=== PATIENT | female | born 1940 ===

== ENCOUNTER 2018-07-09 03:04 | Emergency (ER) | payer BC ==
[~2018-07-09] VITALS: Ht 165.1 cm; Wt 78.0 kg
[2018-07-09 03:15] VITALS: Ht 165.1 cm; Wt 78.0 kg
--- NOTE | 2018-07-09 04:11 | EMERGENCY ROOM VISIT NOTE ---
History Report prepared by Yazan: Lenin Hess Under the Supervision of: Dr. Donna Sommers D.O. First contact with patient: 03:59 Chief Complaint: URINARY SYMPTOMS Stated Complaint: UTI,UNCONTROLLABLE SHAKE History of Present Illness The patient is a 77 year old female who presents to the Emergency Room with complaints of constant shakiness beginning a few days ago. The patient states that she developed severe chills and uncontrollable shakiness a few days ago. She notes that her chills were so severe that her teeth were chattering and her hands were shaking. No measured fever at home. The patient states that she was having pain with urination and an increased frequency of urination a few days ago. She also complains of back pain, nausea, and a dry mouth. She denies any fever, abdominal pain, cough, cold-like symptoms, and known sick contacts. She notes that her blood sugar and temperature were normal when she last checked. She reports that she has a history of UTIs, and she states that her current symptoms feel like a UTI. The patient notes that she has not had a UTI that spread to her kidneys or grew out resistant organisms. She reports that she also had a bypass surgery 14 years ago. Source of History: patient Onset: a few days ago Position: other (generalized) Quality: other (shakiness) Timing: constant Associated Symptoms: + chills, + nausea, + back pain, No fevers, No cough, No abdominal pain Note: The patient also complains of discharge along her eyelashes, pain with urination , an increased frequency of urination, and a dry mouth. She denies any cold like symptoms. Review of Systems See HPI for pertinent positives & negatives. A total of 10 systems reviewed and were otherwise negative. Past Medical & Surgical Medical Problems: (1) Eye infection (2) UTI (urinary tract infection) Family History No pertinent family history stated. Social History Smoking Status: Former Smoker Marital Status: Housing Status: lives with family Occupation Status: retired Current/Historical Medications Scheduled Aspirin (Aspirin Ec), 81 MG PO HS Canagliflozin (Invokana), 100 MG PO QAM Cephalexin (Keflex), 1 CAP PO BID Coenzyme Q10 (Ubidecarenone) (Coq10), 100 MG PO HS Famotidine (Pepcid Ac Maximum Strengt), 20 MG PO AMPM Glimepiride (Glimepiride), 2 TAB PO QPM Glimepiride (Glimepiride), 1 TAB PO QAM Linagliptin (Tradjenta), 1 TAB PO QAM Losartan Potassium (Cozaar), 25 MG PO HS Metformin Hcl (Glucophage), 1,000 MG PO BID Metoprolol Tartrate (Lopressor) (Lopressor), 25 MG PO BID Multiple Vitamins W/ Minerals (Multivitamin Adults 50+), 1 TAB PO Q2D Pravastatin Sod (Pravastatin Sodium), 40 MG PO HS Scheduled PRN Cyclosporine (Ophth) (Restasis), 1 DROP OP BID PRN for DRYNESS Allergies Coded Allergies: Penicillins (Verified Allergy, Severe, HIVES, 07/09/18) Physical Exam Vital Signs Date Time Temp Pulse Resp B/P (MAP) Pulse Ox O2 Delivery O2 Flow Rate FiO2 07/09/18 07:18 66 16 140/63 97 07/09/18 04:58 80 18 140/63 95 Room Air 07/09/18 03:15 36.9 83 18 115/66 95 Room Air Physical Exam GENERAL: alert, well appearing, well nourished, no distress, non-toxic EYE EXAM: normal conjunctiva, PERRL and EOM's grossly intact OROPHARYNX: no exudate, no erythema, lips, buccal mucosa, and tongue normal and mucous membranes are dry NECK: supple, no nuchal rigidity, no adenopathy, non-tender LUNGS: Clear to auscultation. Normal chest wall mechanics, no w/r/r HEART: no murmurs, S1 normal and S2 normal ABDOMEN: abdomen soft, non-tender, normo-active bowel sounds, no masses, no rebound or guarding. BACK: Back is symmetrical on inspection and there is no deformity, no midline tenderness, no CVA tenderness. SKIN: no rashes and no bruising UPPER EXTREMITIES: upper extremities are grossly normal. FROM, nml pulses. LOWER EXTREMITIES: No pitting edema. FROM, nml pulses. NEURO EXAM: Normal sensorium, cranial nerves II-XII grossly intact, normal speech, no gross weakness of arms, no gross weakness of legs. Medical Decision & Procedures ER Provider Diagnostic Interpretation: Radiology results have been interpreted by the radiologist and reviewed by me. CT ABDOMEN & PELVIS With Contrast: No bowel obstruction or definite wall thickening. No ascites or free air. 2cm right adnexal cyst. Mild bladder wall thickening may indicate infection. Colonic diverticulosis without inflammation. Pneumobilia, status post cholecystectomy, no CBD dilation. Radiologist: Hermelindo Fischer MD. ADDENDUM: No acute fracture. Nonspecific subcutaneous calcified lesion at the level of the coccyx. Laboratory Results 07/09/18 04:25 Red Blood Count 4.52, Mean Corpuscular Volume 88.7, Mean Corpuscular Hemoglobin 28.3, Mean Corpuscular Hemoglobin Concent 31.9, Mean Platelet Volume 10.5, Neutrophils (%) (Auto) 80.5, Lymphocytes (%) (Auto) 9.0, Monocytes (%) (Auto) 7.2, Eosinophils (%) (Auto) 2.6, Basophils (%) (Auto) 0.3, Neutrophils # (Auto) 6.25, Lymphocytes # (Auto) 0.70, Monocytes # (Auto) 0.56, Eosinophils # (Auto) 0.20, Basophils # (Auto) 0.02 07/09/18 04:25 Test 07/09/18 03:50 07/09/18 04:25 07/09/18 06:53 Urine Color DK YELLOW Urine Appearance CLOUDY (CLEAR) Urine pH 5.0 (4.5-7.5) Urine Specific [place] 1.014 (1.000-1.030) Urine Protein TRACE (NEG) Urine Glucose (UA) 2+ (NEG) Urine Ketones NEG (NEG) Urine Occult Blood TRACE (NEG) Urine Nitrite POS (NEG) Urine Bilirubin NEG (NEG) Urine Urobilinogen NEG (NEG) Urine Leukocyte Esterase MODERATE (NEG) Urine WBC (Auto) >30 /hpf (0-5) Urine RBC (Auto) 5-10 /hpf (0-4) Urine Hyaline Casts (Auto) 1-5 /lpf (0-5) Urine Epithelial Cells (Auto) >30 /lpf (0-5) Urine Bacteria (Auto) NEG (NEG) White Blood Count 7.76 K/uL (4.8-10.8) Red Blood Count 4.52 M/uL (4.2-5.4) Hemoglobin 12.8 g/dL (12.0-16.0) Hematocrit 40.1 % (37-47) Mean Corpuscular Volume 88.7 fL (80-100) Mean Corpuscular Hemoglobin 28.3 pg (25-34) Mean Corpuscular Hemoglobin Concent 31.9 g/dl (32-36) Platelet Count 167 K/uL (130-400) Mean Platelet Volume 10.5 fL (7.4-10.4) Neutrophils (%) (Auto) 80.5 % Lymphocytes (%) (Auto) 9.0 % Monocytes (%) (Auto) 7.2 % Eosinophils (%) (Auto) 2.6 % Basophils (%) (Auto) 0.3 % Neutrophils # (Auto) 6.25 K/uL (1.4-6.5) Lymphocytes # (Auto) 0.70 K/uL (1.2-3.4) Monocytes # (Auto) 0.56 K/uL (0.11-0.59) Eosinophils # (Auto) 0.20 K/uL (0-0.5) Basophils # (Auto) 0.02 K/uL (0-0.2) RDW Standard Deviation 48.2 fL (36.4-46.3) RDW Coefficient of Variation 14.9 % (11.5-14.5) Immature Granulocyte % (Auto) 0.4 % Immature Granulocyte # (Auto) 0.03 K/uL (0.00-0.02) Prothrombin Time 9.5 SECONDS (9.0-12.0) Prothromb Time International Ratio 0.9 (0.9-1.1) Anion Gap 8.0 mmol/L (3-11) Est Creatinine Clear Calc Drug Dose 31.2 ml/min Estimated GFR () 37.7 Estimated GFR (Non- 32.5 BUN/Creatinine Ratio 22.5 (10-20) Calcium Level 9.6 mg/dl (8.5-10.1) Magnesium Level 2.1 mg/dl (1.8-2.4) Total Bilirubin 0.6 mg/dl (0.2-1) Aspartate Amino Transf (AST/SGOT) 18 U/L (15-37) Alanine Aminotransferase (ALT/SGPT) 23 U/L (12-78) Alkaline Phosphatase 125 U/L (45-117) Troponin I < 0.015 ng/ml (0-0.045) Pro-B-Type Natriuretic Peptide 409 pg/ml (0-1800) Total Protein 7.7 gm/dl (6.4-8.2) Albumin 3.8 gm/dl (3.4-5.0) Globulin 3.9 gm/dl (2.5-4.0) Albumin/Globulin Ratio 1.0 (0.9-2) Thyroid Stimulating Hormone (TSH) 1.760 uIu/ml (0.300-4.500) Bedside Lactic Acid Venous 1.51 mmol/L (0.90-1.70) Laboratory results per my review. Medications Administered Medications (Trade) Dose Ordered Sig/Nikhil Route Start Time Stop Time Status Last Admin Dose Admin Sodium Chloride 1,000 ml @ 999 mls/hr Q1H1M STAT IV 07/09/18 04:15 07/09/18 05:15 DC 07/09/18 04:50 999 MLS/HR Ceftriaxone Sodium (Rocephin Inj) 1 gm NOW STAT IV 07/09/18 04:46 07/09/18 04:47 DC 07/09/18 04:57 1 GM Sodium Chloride 500 ml @ 999 mls/hr Q31M STAT IV 07/09/18 05:22 07/09/18 05:52 DC 07/09/18 06:11 999 MLS/HR ECG Per My Interpretation Indication: back/shoulder pain Rate (beats per minute): 73 Rhythm: sinus rhythm Findings: RBBB, no acute ischemic change, other (Normal axis) ED Course 0401: The patient was evaluated in room B6. A complete history and physical exam was performed. 0415: Sodium Chloride 1000 ml @ 999 mls/hr IV 0446: Rocephin Inj 1gm IV 0522: Sodium Chloride 500 ml @ 999 mls/hr IV 0629: I reevaluated and updated the patient. 0657: Upon reevaluation, the patient is feeling better. I discussed the findings and the treatment plan with the patient. She verbalizes agreement and understanding. The patient was discharged home. Medical Decision Differential diagnosis: Etiologies such as renal colic, appendicitis, diverticulitis, mesenteric ischemia, aortic pathology, infections, inflammatory bowel disease, PUD, biliary pathology, UTI, pyelonephritis, as well as others were entertained Patient well-appearing here despite complaints, initially with dry mucous membranes and started on IV fluids. Patient hemodynamically stable throughout. Patient's UA consistent with urinary tract infection. No evidence on CT of fulminant pyelonephritis. Mild elevation of patient's creatinine noted, patient unsure what her baseline is, and no priors available for comparison given the patient just moved to the area last week and all records are still at her old residence with her family physician who she still intends to follow with. No evidence of bacteremia/sepsis. Patient had no recurrent nausea or vomiting, fevers or chills, and pain was well controlled. Patient anxious to be discharged. I did discuss at length continued use of the antibiotic that she was started on at home, need for improved hydration, symptoms to watch and return for, follow-up within 2-3 days with her family doctor, she verbalized understanding was agreeable with plan. Patient's initial lactic acid mildly elevated, I feel this is more likely due to dehydration than evolving sepsis/ ischemia given that it was improved on recheck following IV fluids. Medication Reconcilliation Current Medication List: was personally reviewed by me Blood Pressure Screening Patient's blood pressure: Elevated blood pressure Blood pressure disposition: Elevated BP felt to be situational Impression Primary Impression: Urinary tract infection Additional Impressions: Dehydration Acute renal insufficiency Scribe Attestation The scribe's documentation has been prepared under my direction and personally reviewed by me in its entirety. I confirm that the note above accurately reflects all work, treatment, procedures, and medical decision making performed by me. Departure Information Dispostion Home / Self-Care Prescriptions Cephalexin (KEFLEX) 500 Mg Cap 1 CAP PO BID for 7 Days, #14 CAP Prov: Donna Sommers, DO 07/09/18 Referrals No Doctor, Assigned (PCP) Forms HOME CARE DOCUMENTATION FORM, IMPORTANT VISIT INFORMATION Patient Instructions My [facility] Additional Instructions Please call and follow-up with your family doctor next week. These continue taking the Keflex as prescribed. You may skip the morning dose as he was given IV antibiotics here. Please have your family doctor recheck your kidney function next week as it was mildly abnormal but we do not know what her baseline is. Your creatinine was 1.5. Your urine will be sent for culture, this will take 48 hours to result. If antibiotics need to be changed she will receive a phone call. If you have any abdominal pain, back pain, vomiting, fevers or chills, are unable to urinate, you have any other new concerns, please return the emergency room. Please take the antibiotics for 7 days. Please drink plenty of water to stay well-hydrated. Please continue your other medications as prescribed. Problem Qualifiers Primary Impression: Urinary tract infection Urinary tract infection type: acute cystitis Hematuria presence: with hematuria Qualified Codes: N30.01 - Acute cystitis with hematuria
[2018-07-09] MEDS ORDERED: SODIUM CHLORIDE 0.9% 1000ML 1,000 ML IV STA (04:15)
[2018-07-09 04:37] LABS: BASO % 0.3 %; BASO ABS # 0.02 K/uL (0-0.2); EOS % 2.6 %; HEMATOCRIT 40.1 % (37-47); HEMOGLOBIN 12.8 g/dL (12.0-16.0); IG# 0.03 K/uL (0.00-0.02); MEAN CELL VOLUME 88.7 fL (80-100); MEAN CORPUSCULAR HEMOGLOBIN 28.3 pg (25-34); MEAN CORPUSCULAR HGB CONC 31.9 g/dl (32-36); MEAN PLATELET VOLUME 10.5 fL (7.4-10.4); MONO % 7.2 %; MONO ABS # 0.56 K/uL (0.11-0.59); NEUT % 80.5 %; NEUT ABS # 6.25 K/uL (1.4-6.5); PLATELET COUNT 167 K/uL (130-400); RED CELL DISTRIBUTION WIDTH CV 14.9 % (11.5-14.5); RED CELL DISTRIBUTION WIDTH SD 48.2 fL (36.4-46.3); WHITE BLOOD COUNT 7.76 K/uL (4.8-10.8)
[2018-07-09] MEDS ORDERED: CEFTRIAXONE SOD INJ 1 GM ADDVIAL IV STA (04:46)
[2018-07-09 04:52] LABS: INR 0.9 (0.9-1.1)
[2018-07-09 05:11] LABS: ALBUMIN 3.8 gm/dl (3.4-5.0); ALKALINE PHOSPHATASE 125 U/L (45-117); ALT/SGPT 23 U/L (12-78); AST/SGOT 18 U/L (15-37); BLOOD UREA NITROGEN 34 mg/dl (7-18); CALCIUM 9.6 mg/dl (8.5-10.1); CARBON DIOXIDE 24 mmol/L (21-32); CREATININE 1.51 mg/dl (0.60-1.20); GLUCOSE 171 mg/dl (70-99); POTASSIUM 4.6 mmol/L (3.5-5.1); SODIUM 138 mmol/L (136-145); TOTAL PROTEIN 7.7 gm/dl (6.4-8.2)
[2018-07-09] MEDS ORDERED: OPTIRAY 320 IV PRN (05:15)
[2018-07-09] MEDS ORDERED: SODIUM CHLORIDE 0.9% 500ML 500 ML IV STA (05:22)
[2018-07-09] MEDS ORDERED: GLIM1TAB2 PO ×2 (05:24)
[2018-07-09] MEDS ORDERED: METF1000 PO (05:24)
[2018-07-09] MEDS ORDERED: LOSA1TAB PO (05:27)
[2018-07-09] MEDS ORDERED: COEN100C7 PO (05:27)
[2018-07-09] MEDS ORDERED: ASPI81TA28 PO (05:27)
[2018-07-09] MEDS ORDERED: PRVC/40 PO (05:27)
[2018-07-09] MEDS ORDERED: CANA1TAB PO (05:27)
[2018-07-09] MEDS ORDERED: LINA1TAB PO (05:27)
[2018-07-09] MEDS ORDERED: METO25TA56 PO (05:27)
[2018-07-09] MEDS ORDERED: MULT-916 PO (05:28)
[2018-07-09] MEDS ORDERED: FAMO20TA40 PO (05:29)
[2018-07-09] MEDS ORDERED: CYCL0.052 OP (05:29)
[2018-07-09] MEDS ORDERED: CEPH-571 PO (06:48)
--- NOTE | 2018-07-09 07:17 | DIAGNOSTIC IMAGING REPORT ---
ABD/PELVIS IV CONTRAST ONLY CLINICAL HISTORY: 77 years-old Female presenting with UTI, back pain, chills. TECHNIQUE: Multidetector CT of the abdomen and pelvis was performed after the administration of intravenous contrast. IV contrast: 88 mL of Optiray 320. A dose lowering technique was used consistent with the principles of ALARA (as low as reasonably achievable). COMPARISON: None. CT DOSE (mGy.cm): The estimated cumulative dose is 697.23 mGy.cm. FINDINGS: Payroll Analyst topogram: Median sternotomy wires. Lung bases: Lungs and pleural spaces clear. Top normal cardiac size. Coronary artery, aortic valve, and mitral annular calcification. No pericardial or pleural effusion. Liver: Normal morphology. No liver lesion. Patent hepatic vasculature. Biliary: Mild intrahepatic biliary ductal dilatation. Pneumobilia noted. The common hepatic duct appears anastomosed to the duodenal bulb, which may be postsurgical. The extrahepatic bile duct apart from this is not apparent. Gallbladder surgically absent. Pancreas: Mild parenchymal atrophy. Spleen: Normal. Adrenal glands: Normal. Kidneys and ureters: Mild perinephric fat stranding bilaterally, nonspecific. Prominent simple appearing cyst in the left kidney as well as additional small cysts suspected bilaterally. No nephrolithiasis. No hydronephrosis. Bladder: Mild circumferential wall thickening. Pelvic organs: Normal uterus. Simple appearing 2.5 cm right ovarian cyst. Left ovary normal. Bowel: Limited diverticulosis of the mid sigmoid colon. The appendix is not apparent. No bowel obstruction. Mild wall thickening of the duodenal bulb. Peritoneal cavity: No free fluid or intraperitoneal gas. Lymph nodes: No enlarged lymph nodes in the abdomen or pelvis. Vasculature: Atherosclerosis of the normal caliber abdominal aorta. IVC patent. Abdominal wall: Postsurgical changes of the right upper quadrant. A soft tissue density internally calcified lesion is noted at the coccygeal tip measuring 3.1 cm (series 3 image 411). Musculoskeletal: Degenerative changes of the spine. Sternotomy changes. Degenerative changes of the pubic symphysis. No evidence of osseous erosion or periosteal reaction at the coccyx. IMPRESSION: 1. Mild bladder wall thickening could indicate cystitis. Correlate with urinalysis. No CT evidence of upper tract involvement. No hydronephrosis. 2. Simple appearing 2.5 cm right ovarian cyst. Given the late postmenopausal status and appearance, this be considered benign and no further follow-up would be indicated per the [employer] Incidental Findings Committee II on Adnexal Findings. 3. Pneumobilia likely expected in the setting of the presumed hepaticoduodenostomy. 4. Partially calcified soft tissue lesion at the coccygeal tip. This is indeterminate and an underlying neoplastic lesion is difficult to exclude. Alternatively, this may represent chronic inflammation. Further evaluation with ultrasound to be considered. No CT evidence of osteomyelitis. Electronically signed by: Chivo Ramirez M.D. 07/09/2018 7:16 AM Dictated Date/Time: 07/09/2018 6:56 AM
[2018-07-09 07:18] VITALS: BP 140/63; PULSE 66; O2SAT 97
== END 2018-07-09 07:19 | disposition home or self-care (01) ==
LOC: C.EDB 03:05
DX: N39.0 Urinary tract infection, site not specified (principal); E86.0 Dehydration; N28.9 Disorder of kidney and ureter, unspecified; Z87.440 Personal history of urinary (tract) infections; Z87.891 Personal history of nicotine dependence; Z79.82 Long term (current) use of aspirin; Z79.84 Long term (current) use of oral hypoglycemic drugs; Z79.899 Other long term (current) drug therapy; Z88.0 Allergy status to penicillin